=== PATIENT | female | born 1985 | race African-American/Black ===

== ENCOUNTER 2022-04-13 09:10 | Emergency (ER) | payer OTHER ==
[2022-04-13 10:15] LABS: #Eosinphils 0.1 10x3/uL (0.0-0.5); #Monocytes 0.6 10x3/uL (0.0-1.1); #Neutrophils 7.1 10x3/uL (1.5-8.4); %Basophils 0.3 % (0.0-2.0); %Eosinophils 0.9 % (0.0-6.0); %Lymphocytes 19.3 % (18.0-47.0); %Neutrophils 73.3 % (40.0-75.0); Hemoglobin 12.1 g/dL (12.0-15.5); Mean Corpuscular HGB CONC 34.6 g/dL (32.0-36.0); Mean Corpuscular Hemoglobin 27.6 pg (27.0-33.0); Mean Corpuscular Volume 79.9 fl (81.6-98.3); Mean Platelet Volume 10.6 fl (7.4-10.4); Platelet Count 224 10x3/uL (150-450); Red Blood Cell (RBC) Count 4.38 10x6/uL (3.90-5.03); White Blood Cell (WBC) Count 9.6 10x3/uL (3.5-10.5)
== END 2022-04-13 12:30 | disposition home or self-care (01) ==
LOC: CSHERS 09:10
DX: O20.0 Threatened abortion (principal); O99.891 Other specified diseases and conditions complicating pregnancy; R82.71 Bacteriuria; O20.8 Other hemorrhage in early pregnancy; Z3A.01 Less than 8 weeks gestation of pregnancy; Z87.891 Personal history of nicotine dependence
CPT/HCPCS: 76856; 84702; 85025; 86900; 86901; 90384; 96372

== ENCOUNTER 2022-08-04 01:00 | Day surgery (SDC) | payer OTHER ==
[2022-08-04] MEDS ORDERED: hydrALAZINE 20 MG/ML VIAL SLOW IVP PRN (01:33)
[2022-08-04 01:43] VITALS: BMI 33.4
== END 2022-08-04 02:07 | disposition home or self-care (01) ==
LOC: CSHLD/OP 01:00
PROVIDERS: ATTEND Family Medicine
DX: O36.8120 Decreased fetal movements, second trimester, not applicable or unspecified (principal); O24.419 Gestational diabetes mellitus in pregnancy, unspecified control; O13.2 Gestational [pregnancy-induced] hypertension without significant proteinuria, second trimester; O09.522 Supervision of elderly multigravida, second trimester; Z79.899 Other long term (current) drug therapy; Z91.041 Radiographic dye allergy status; Z91.013 Allergy to seafood; Z3A.24 24 weeks gestation of pregnancy
CPT/HCPCS: 99281

== ENCOUNTER 2022-08-12 10:17 | Outpatient (CLI) | payer OTHER | END 2022-08-12 10:18 | disposition home or self-care (01) | LOC: CSHULT 10:17 | PROVIDERS: ATTEND Family Medicine | DX: O09.892 Supervision of other high risk pregnancies, second trimester (principal); Z3A.25 25 weeks gestation of pregnancy | CPT/HCPCS: 76805 ==

== ENCOUNTER 2022-08-23 14:05 | Emergency (ER) | payer BC, OTHER ==
[2022-08-23] MEDS ORDERED: Azithromycin 250 MG TAB ONE (15:04)
[2022-08-23] MEDS ORDERED: cefTRIAXone (ROCEPHIN) 500 MG VIAL ONE (15:04)
== END 2022-08-23 15:32 | disposition home or self-care (01) ==
LOC: CSHERS 14:05
DX: O98.313 Other infections with a predominantly sexual mode of transmission complicating pregnancy, third trimester (principal); Z3A.27 27 weeks gestation of pregnancy
CPT/HCPCS: 96372; 99283; J0696

== ENCOUNTER 2022-10-16 09:41 | Emergency (ER) | payer BC, OTHER | END 2022-10-16 10:46 | disposition home or self-care (01) | LOC: CSHERS 09:41 | DX: Z00.00 Encounter for general adult medical examination without abnormal findings (principal); O09.513 Supervision of elderly primigravida, third trimester; O99.333 Smoking (tobacco) complicating pregnancy, third trimester; F17.210 Nicotine dependence, cigarettes, uncomplicated; Z3A.35 35 weeks gestation of pregnancy ==

== ENCOUNTER 2022-11-05 11:12 | Day surgery (SDC) | payer OTHER ==
[2022-11-05 11:39] VITALS: BMI 34.6
== END 2022-11-05 14:40 | disposition home or self-care (01) ==
LOC: CSHLD/OP 11:12
PROVIDERS: ATTEND Family Medicine
DX: Z36.89 Encounter for other specified antenatal screening (principal)
CPT/HCPCS: 76815; 76819; 99282

== ENCOUNTER 2022-11-09 05:27 | Inpatient (IN) | payer OTHER ==
[2022-11-09 05:47] VITALS: BMI 37.4
[2022-11-09] MEDS ORDERED: hydrALAZINE 20 MG/ML VIAL SLOW IVP PRN ×3 (06:15→13:23)
[2022-11-09] MEDS ORDERED: Lactated Ringer's 1,000 ML IV SCH ×2 (06:15→09:00)
[2022-11-09] MEDS ORDERED: Morphine 4 MG/ML VIAL SLOW IVP SCH (08:00)
[2022-11-09] MEDS ORDERED: Carboprost 250 MCG/ML AMP IM PRN (08:57)
[2022-11-09] MEDS ORDERED: Diphenoxylate HCl/Atropine Tablet PO PRN (08:57)
[2022-11-09] MEDS ORDERED: Ondansetron PF 4 MG/2 ML Vial IVP PRN ×3 (08:57→13:23)
[2022-11-09] MEDS ORDERED: Promethazine HCl 25 MG/ML VIAL IM PRN ×3 (08:57→13:23)
[2022-11-09] MEDS ORDERED: Bicitra 30 ML UDCUP PO PRN (08:57)
[2022-11-09] MEDS ORDERED: Famotidine/PF 20 mg/2ml Vial SLOW IVP PRN (08:57)
[2022-11-09] MEDS ORDERED: Methylergonovine 0.2 MG/ML VIAL IM PRN (08:57)
[2022-11-09] MEDS ORDERED: Misoprostol 200 MCG TAB PR PRN (08:57)
[2022-11-09] MEDS ORDERED: NS w/ Oxytocin 30 units 500 ML IV SCH (09:00)
[2022-11-09] MEDS ORDERED: CEFAZOLIN 2 GM in Sodium Chloride 0.9% 100 ML IVPB SCH (09:00)
[2022-11-09] MEDS ORDERED: PHENYLEPHRINE-NS 100 MCG/ML 10 ML SYRINGE ONE (09:15)
[2022-11-09] MEDS ORDERED: Ondansetron PF 4 MG/2 ML Vial ONE (09:15)
[2022-11-09] MEDS ORDERED: Oxytocin 10 UNITS/ML VIAL ONE (09:15)
[2022-11-09] MEDS ORDERED: Morphine PF 10 MG/10 ML VIAL ONE (09:16)
[2022-11-09] MEDS ORDERED: CEFAZOLIN 2 GM VIAL ONE (09:18)
[2022-11-09] MEDS ORDERED: Famotidine/PF 20 mg/2ml Vial ONE (09:18)
[2022-11-09 09:20] LABS: Mean Corpuscular HGB CONC 32.1 g/dL (32.0-36.0); Mean Corpuscular Hemoglobin 24.3 pg (27.0-33.0); Mean Corpuscular Volume 75.9 fl (81.6-98.3); Platelet Count 121 10x3/uL (150-450); RBC Distribution Width 14.6 % (11.5-14.5); Red Blood Cell (RBC) Count 4.11 10x6/uL (3.90-5.03); White Blood Cell (WBC) Count 8.6 10x3/uL (3.5-10.5)
[2022-11-09] MEDS ORDERED: Naloxone HCl 0.4 mg/ml Vial IVP PRN ×2 (09:41)
[2022-11-09] MEDS ORDERED: Ondansetron HCl/PF 4 MG/2 ML Vial IVP PRN (09:41)
[2022-11-09] MEDS ORDERED: diphenhydrAMINE 50 MG/ML VIAL IVP PRN (09:41)
[2022-11-09] MEDS ORDERED: Ketorolac Tromethamine 30 MG/ML VIAL IVP PRN (09:41)
[2022-11-09] MEDS ORDERED: Fentanyl 100 MCG/2 ML VIAL SLOW IVP PRN (09:41)
[2022-11-09] MEDS ORDERED: Meperidine HCl/PF 25 MG/ML VIAL SLOW IVP PRN (09:41)
[2022-11-09] MEDS ORDERED: Promethazine HCl 25 MG SUPP PR PRN (09:41)
[2022-11-09] MEDS ORDERED: Naloxone HCl 0.4 mg/ml Vial IV PRN (09:41)
[2022-11-09] MEDS ORDERED: Moisturizing Cream (Eucerin) 113 GM JAR TOP PRN (09:41)
[2022-11-09 09:43] LABS: HBSAg Index 0.15 S/CO (0-0.99); Hep B Surf Ag - L&D Non-Reactive S/CO (NonReactive)
[2022-11-09 09:44] LABS: Syphilis Antibody Nonreactive (Nonreactive); Syphilis Antibody Index 0.07 S/CO (<1.00 Non-Reactive)
[2022-11-09] MEDS ORDERED: Communication Order-Pharmacy FS SCH (09:45)
[2022-11-09] MEDS ORDERED: Ketorolac Tromethamine 30 MG/ML VIAL IVP SCH (09:45)
[2022-11-09 10:13] LABS: HIV (1/2) Antibody/Antigen Non-Reactive (NonReactive); HIV 1/2 INDEX 0.08 S/CO (<1.00)
[2022-11-09] MEDS ORDERED: Boostrix 0.5 ML (Tdap) VIAL (>/=7 yrs of age) IM ONE (13:23)
[2022-11-09] MEDS ORDERED: diphenhydrAMINE 25 MG CAP PO PRN (13:23)
[2022-11-09] MEDS ORDERED: Bisacodyl 10 MG SUPP PR PRN (13:23)
[2022-11-09] MEDS: Ketorolac Tromethamine 30 MG/ML VIAL IVP SCH ×2 (16:19→23:36)
[2022-11-09] MEDS: Docusate 100 MG CAP PO SCH (20:43)
[2022-11-09] MEDS: Ferrous Sulfate 325 MG TAB PO SCH (20:43)
[2022-11-09] MEDS ORDERED: Meperidine HCl/PF 25 MG/ML VIAL IM PRN (22:00)
[2022-11-10 05:06] LABS: Hemoglobin 9.1 g/dL (12.0-15.5); Mean Corpuscular HGB CONC 31.3 g/dL (32.0-36.0); Mean Corpuscular Hemoglobin 24.1 pg (27.0-33.0); Mean Corpuscular Volume 77.2 fl (81.6-98.3); Platelet Count 76 10x3/uL (150-450); RBC Distribution Width 14.5 % (11.5-14.5); Red Blood Cell (RBC) Count 3.77 10x6/uL (3.90-5.03); White Blood Cell (WBC) Count 10.1 10x3/uL (3.5-10.5)
[2022-11-10] MEDS: Ketorolac Tromethamine 30 MG/ML VIAL IVP SCH ×2 (05:15→11:03)
[2022-11-10] MEDS: Prenatal Vitamin 1 TAB PO SCH (08:17)
[2022-11-10] MEDS: HYDROcodone/Acetaminophen 5/325 mg Tablet PO PRN ×3 (08:18→15:36)
[2022-11-10] MEDS: Docusate 100 MG CAP PO SCH ×2 (08:18→21:07)
[2022-11-10] MEDS: Ferrous Sulfate 325 MG TAB PO SCH ×2 (08:18→21:07)
[2022-11-10] MEDS: Ibuprofen 800 MG TAB PO SCH ×2 (13:06→21:07)
[2022-11-10] MEDS: Simethicone Chewable 80 MG TAB PO PRN (21:07)
[2022-11-11] MEDS: HYDROcodone/Acetaminophen 5/325 mg Tablet PO PRN ×2 (02:12→23:51)
[2022-11-11] MEDS: Ibuprofen 800 MG TAB PO SCH ×3 (05:25→21:04)
[2022-11-11] MEDS: Prenatal Vitamin 1 TAB PO SCH (08:25)
[2022-11-11] MEDS: Docusate 100 MG CAP PO SCH ×2 (08:25→21:04)
[2022-11-11] MEDS: Ferrous Sulfate 325 MG TAB PO SCH ×2 (08:25→21:04)
[2022-11-11] MEDS: Simethicone Chewable 80 MG TAB PO PRN ×2 (16:20→23:51)
[2022-11-12] MEDS: Ibuprofen 800 MG TAB PO SCH ×2 (05:23→13:20)
[2022-11-12 07:46] VITALS: BP 96/57; TEMP 98.2
[2022-11-12] MEDS: Docusate 100 MG CAP PO SCH (08:24)
[2022-11-12] MEDS: Ferrous Sulfate 325 MG TAB PO SCH (08:24)
[2022-11-12] MEDS: Prenatal Vitamin 1 TAB PO SCH (08:24)
[2022-11-12] MEDS: HYDROcodone/Acetaminophen 5/325 mg Tablet PO PRN (15:09)
== END 2022-11-12 15:50 | disposition home or self-care (01) | DRG 788 ==
LOC: CSHLD/OP 05:27 → CSHLD 08:57 → CSHPP 14:01
PROVIDERS: ADMIT Family Medicine; ATTEND Family Medicine
PROC: 10D00Z1 Extraction of Products of Conception, Low, Open Approach (ICD-10-PCS; principal; 2022-11-09)
PROC: 3E0334Z Introduction of Serum, Toxoid and Vaccine into Peripheral Vein, Percutaneous Approach (ICD-10-PCS; 2022-11-09)
DX: O26.893 Other specified pregnancy related conditions, third trimester (principal); Z67.21 Type B blood, Rh negative; Z3A.38 38 weeks gestation of pregnancy; Z37.0 Single live birth; Z91.040 Latex allergy status; Z91.013 Allergy to seafood; O34.211 Maternal care for low transverse scar from previous cesarean delivery
CPT/HCPCS: 36415; 51702; 85027; 85461; 86780; 86850; 86900; 86901; 87340; 87389; 90384; 96372; 99285; J1885; J2270; J2274; J2405; J2590; J3490; S0028

== ENCOUNTER 2023-04-09 22:20 | Emergency (ER) | payer OTHER ==
[2023-04-09 23:28] LABS: Hematocrit 37.5 % (34.9-44.5); Hemoglobin 11.9 g/dL (12.0-15.5); Mean Corpuscular HGB CONC 31.7 g/dL (32.0-36.0); Mean Corpuscular Hemoglobin 24.4 pg (27.0-33.0); Mean Corpuscular Volume 76.8 fl (81.6-98.3); Mean Platelet Volume 11.5 fl (7.4-10.4); Platelet Count 242 10x3/uL (150-450); RBC Distribution Width 15.9 % (11.5-14.5); Red Blood Cell (RBC) Count 4.88 10x6/uL (3.90-5.03); White Blood Cell (WBC) Count 10.5 10x3/uL (3.5-10.5)
[2023-04-09 23:32] LABS: MDiff Complete? YES
[2023-04-09 23:33] LABS: ALT (SGPT) 9 U/L (8-55); AST (SGOT) 12 U/L (5-34); Albumin 3.8 g/dL (3.5-5.0); Alkaline Phosphatase 88 U/L (40-110); Anion Gap 13 mmol/L (10-20); BUN (Urea Nitrogen) 11 mg/dL (7.0-18.7); Bilirubin, Total 0.2 mg/dL (0.2-1.2); Calc. Creatinine Clearance 0 mL/min (70-130); Calcium 8.9 mg/dL (7.8-10.44); Carbon Dioxide 21 mmol/L (22-29); Chloride 108 mmol/L (98-107); Estimated GFR 109; Globulin 2.7 g/dL (2.4-3.5); Glucose 86 mg/dL (70-105); Potassium 3.9 mmol/L (3.5-5.1); Protein, Total 6.5 g/dL (6.0-8.3); Sodium 138 mmol/L (136-145)
[2023-04-09 23:39] LABS: Troponin I Less than 0.010 ng/mL (< 0.028)
[2023-04-10 00:08] LABS: Band 2 % (5-11); Eosinophils 2 % (0-10); Lymphocytes 30 % (21-51); Monocytes 8 % (0-10); Neutrophil 58 % (42-75)
[2023-04-10 00:10] LABS: Microcytosis SLIGHT = 6-15 cells (100X) (0-5/hpf)
[2023-04-10 00:11] LABS: Platelet Adequacy Comment Appears Adequate
[2023-04-10 00:43] LABS: Bilirubin Neg (Negative); Blood, Urine Negative (Negative); Clarity Slightly Cloudy (Clear); Glucose, Urine (Dipstick) Normal (Negative); Ketone, Urine Negative (Negative); Leukocyte Negative (Negative); Nitrite Negative (Negative); Protein, Urine (Dipstick) Negative (Neg-Trace); Specific Gravity, Urine 1.015 (1.005-1.030); Urobilinogen Normal mg/dL (Less than 2)
[2023-04-10 01:02] LABS: Bacteria/HPF None Seen HPF (None Seen); CAUTI Indications for Culture Pregnancy; RBC/HPF None Seen HPF (0-3); Squamous Epithelial 0-3 HPF (0-3); WBC/HPF None Seen HPF (0-3)
[2023-04-10 01:03] LABS: Urine Culture Reflex Yes Yes
== END 2023-04-10 01:07 | disposition home or self-care (01) ==
LOC: CSHERS 22:20
DX: O99.891 Other specified diseases and conditions complicating pregnancy (principal); R07.89 Other chest pain; O13.9 Gestational [pregnancy-induced] hypertension without significant proteinuria, unspecified trimester; O24.419 Gestational diabetes mellitus in pregnancy, unspecified control; O99.331 Smoking (tobacco) complicating pregnancy, first trimester; F17.210 Nicotine dependence, cigarettes, uncomplicated; Z3A.01 Less than 8 weeks gestation of pregnancy
CPT/HCPCS: 71046; 76856; 80053; 81001; 84484; 84702; 85025; 85379; 87086; 93005

== ENCOUNTER 2023-07-10 20:17 | Emergency (ER) | payer OTHER ==
[2023-07-10 21:02] LABS: #Basophils 0.02 10x3/uL (0.0-0.2); #Eosinphils 0.09 10x3/uL (0.0-0.5); #Monocytes 0.69 10x3/uL (0.0-1.1); #Neutrophils 6.85 10x3/uL (1.5-8.4); %Basophils 0.2 % (0.0-2.0); %Eosinophils 0.9 % (0.0-6.0); %Lymphocytes 22.9 % (18.0-47.0); %Monocytes 6.9 % (0.0-10.0); %Neutrophils 68.9 % (40.0-75.0); Hematocrit 33.9 % (34.9-44.5); Hemoglobin 11.3 g/dL (12.0-15.5); Mean Corpuscular HGB CONC 33.3 g/dL (32.0-36.0); Mean Corpuscular Hemoglobin 26.9 pg (27.0-33.0); Mean Corpuscular Volume 80.7 fl (81.6-98.3); Mean Platelet Volume 11.1 fl (7.4-10.4); Platelet Count 156 10x3/uL (150-450); RBC Distribution Width 15.7 % (11.5-14.5)
[2023-07-10 21:16] LABS: ALT (SGPT) Less than 7 U/L (8-55); AST (SGOT) 9 U/L (5-34); Albumin 2.5 g/dL (3.5-5.0); Alkaline Phosphatase 69 U/L (40-110); Anion Gap 11 mmol/L (10-20); BUN (Urea Nitrogen) 8 mg/dL (7.0-18.7); Bilirubin, Total Less than 0.2 mg/dL (0.2-1.2); Calc. Creatinine Clearance 0 mL/min (70-130); Calcium 8.4 mg/dL (7.8-10.44); Carbon Dioxide 20 mmol/L (22-29); Chloride 110 mmol/L (98-107); Estimated GFR 121; Glucose 90 mg/dL (70-105); Lipase 17 U/L (8-78); Potassium 3.3 mmol/L (3.5-5.1); Protein, Total 5.5 g/dL (6.0-8.3); Sodium 138 mmol/L (136-145)
[2023-07-10 21:47] LABS: Bilirubin Neg (Negative); Blood, Urine Negative (Negative); Clarity Clear (Clear); Glucose, Urine (Dipstick) Normal (Negative); Ketone, Urine 5 mg/dL (Negative); Leukocyte 100 (Negative); Nitrite Negative (Negative); Protein, Urine (Dipstick) 15 mg/dl (Neg-Trace); Urobilinogen Normal mg/dL (Less than 2); pH, Urine 6.5 (5.0-9.0)
[2023-07-10 21:58] LABS: Bacteria/HPF None Seen HPF (None Seen); CAUTI Indications for Culture Pregnancy; RBC/HPF None Seen HPF (0-3); Urine Culture Reflex Yes Yes; WBC/HPF 0-3 HPF (0-3)
== END 2023-07-10 22:13 | disposition home or self-care (01) ==
LOC: CSHERS 20:17
DX: O99.892 Other specified diseases and conditions complicating childbirth (principal); O99.282 Endocrine, nutritional and metabolic diseases complicating pregnancy, second trimester; R56.9 Unspecified convulsions; E86.0 Dehydration; Z3A.18 18 weeks gestation of pregnancy
CPT/HCPCS: 76815; 80053; 81001; 83690; 85025; 87086; 93005

== ENCOUNTER 2023-09-02 15:01 | Day surgery (SDC) | payer OTHER ==
[2023-09-02 16:11] LABS: #Basophils 0.01 10x3/uL (0.0-0.2); #Eosinphils 0.08 10x3/uL (0.0-0.5); #Monocytes 0.58 10x3/uL (0.0-1.1); #Neutrophils 7.01 10x3/uL (1.5-8.4); %Basophils 0.1 % (0.0-2.0); %Eosinophils 0.8 % (0.0-6.0); %Lymphocytes 19.8 % (18.0-47.0); %Neutrophils 72.9 % (40.0-75.0); Hematocrit 31.1 % (34.9-44.5); Hemoglobin 10.4 g/dL (12.0-15.5); Mean Corpuscular HGB CONC 33.4 g/dL (32.0-36.0); Mean Corpuscular Hemoglobin 27.6 pg (27.0-33.0); Mean Corpuscular Volume 82.5 fl (81.6-98.3); Mean Platelet Volume 11.3 fl (7.4-10.4); Platelet Count 161 10x3/uL (150-450); RBC Distribution Width 15.4 % (11.5-14.5); Red Blood Cell (RBC) Count 3.77 10x6/uL (3.90-5.03); White Blood Cell (WBC) Count 9.6 10x3/uL (3.5-10.5)
[2023-09-02 16:23] LABS: ALT (SGPT) 10 U/L (8-55); AST (SGOT) 11 U/L (5-34); Albumin 2.6 g/dL (3.5-5.0); Alkaline Phosphatase 77 U/L (40-110); Anion Gap 13 mmol/L (10-20); BUN (Urea Nitrogen) 6 mg/dL (7.0-18.7); Bilirubin, Total 0.2 mg/dL (0.2-1.2); Calc. Creatinine Clearance 0 mL/min (70-130); Calcium 8.4 mg/dL (7.8-10.44); Carbon Dioxide 21 mmol/L (22-29); Chloride 106 mmol/L (98-107); Estimated GFR 120; Globulin 3.4 g/dL (2.4-3.5); Glucose 78 mg/dL (70-105); Lipase 10 U/L (8-78); Potassium 3.7 mmol/L (3.5-5.1); Sodium 136 mmol/L (136-145)
[2023-09-02 16:49] LABS: Bilirubin Neg (Negative); Blood, Urine Negative (Negative); Glucose, Urine (Dipstick) Normal (Negative); Ketone, Urine Negative (Negative); Leukocyte 500 (Negative); Nitrite Negative (Negative); Protein, Urine (Dipstick) 15 mg/dl (Neg-Trace)
[2023-09-02] MEDS ORDERED: Acetaminophen 500 MG TAB ONE (17:11)
[2023-09-02 17:21] LABS: Clarity Slightly Cloudy (Clear)
[2023-09-02 17:26] LABS: RBC/HPF None Seen HPF (0-3)
[2023-09-02 17:27] LABS: CAUTI Indications for Culture Pregnancy; Transitional Epithelial 0-3 HPF (None Seen)
[2023-09-02 17:28] LABS: Bacteria/HPF 2+ HPF (None Seen)
[2023-09-02 17:30] LABS: Urine Culture Reflex Yes Yes
[2023-09-02] MEDS ORDERED: Lidocaine 2% Viscous 10 mL, Alum & Magn 30 mL SSW SCH (17:30)
[2023-09-02 19:13] VITALS: BMI 29.6
== END 2023-09-02 20:28 | disposition home or self-care (01) ==
LOC: CSHERS 15:01 → CSHLD/OP 17:57
PROVIDERS: ATTEND Family Medicine
DX: O99.891 Other specified diseases and conditions complicating pregnancy (principal); R07.9 Chest pain, unspecified; O34.211 Maternal care for low transverse scar from previous cesarean delivery; O09.522 Supervision of elderly multigravida, second trimester; O09.42 Supervision of pregnancy with grand multiparity, second trimester; O00.01 Abdominal pregnancy with intrauterine pregnancy; O23.43 Unspecified infection of urinary tract in pregnancy, third trimester; Z3A.26 26 weeks gestation of pregnancy; Z91.041 Radiographic dye allergy status; Z91.013 Allergy to seafood
CPT/HCPCS: 36415; 76705; 80053; 81001; 83690; 85025; 87086; 93005; 99282